=== PATIENT | female | born 1935 | race Caucasian/White ===

== ENCOUNTER 2023-12-22 10:41 | Emergency (ER) | payer MEDICARE ==
[~2023-12-22] VITALS: Ht 162.6 cm; Wt 60.3 kg
[2023-12-22] MEDS ORDERED: ACETAMINOPHEN ES 500 MG TABLET ONE (11:25)
[2023-12-22] MEDS ORDERED: TDAP [DIPH/PERTUSSIS/TET] 0.5 ML VIAL IM ONE (11:25)
[2023-12-22] MEDS: ACETAMINOPHEN ES 500 MG TABLET PO ONE (11:27)
[2023-12-22] MEDS: TDAP [DIPH/PERTUSSIS/TET] 0.5 ML VIAL IM ONE (11:46)
[2023-12-22] MEDS ORDERED: ACET-73 PO (13:15)
[2023-12-22 13:51] VITALS: BP 115/70; TEMP 98.4; O2SAT 100
== END 2023-12-22 13:51 | disposition home or self-care (01) ==
LOC: ER 10:53
DX: S42.464A Nondisplaced fracture of medial condyle of right humerus, initial encounter for closed fracture (principal); S01.111A Laceration without foreign body of right eyelid and periocular area, initial encounter; S00.81XA Abrasion of other part of head, initial encounter; J90 Pleural effusion, not elsewhere classified; Z85.43 Personal history of malignant neoplasm of ovary; Z88.0 Allergy status to penicillin; W01.0XXA Fall on same level from slipping, tripping and stumbling without subsequent striking against object, initial encounter; Y93.K1 Activity, walking an animal; Y92.89 Other specified places as the place of occurrence of the external cause; Y99.8 Other external cause status
CPT/HCPCS: 12011; 29105; 70450; 72125; 73080; 90471; 90715; 99285; A6403